=== PATIENT | male | born 1960 | race Caucasian/White ===

== ENCOUNTER 2019-05-27 11:57 | Day surgery (SDC) | payer OTHER ==
[~2019-05-27] VITALS: Ht 190.5 cm; Wt 126.7 kg
[~2019-05-27 11:57] MED LIST: FURO20 PO; TAMS.4ER PO
--- NOTE | 2019-05-27 13:16 | NUR ---
05/27/19 1316 Claudia Mckeon BLOOD DRAWN FOR HEP C RNA, GENOTYPE, AND FIBROSURE AND SENT TO LAB.
[2019-05-30 01:06] LABS: ALT (SGPT) P5P 165 IU/L (0-55); APOLIPOPROTEIN A-1 192 mg/dL (101-178); BILIRUBIN, TOTAL 0.8 mg/dL (0.0-1.2); GGT 123 IU/L (0-65); HAPTOGLOBIN 12 mg/dL (34-200); NECROINFLAMMAT ACTIVITY GRADE A3-Severe activity (.); NECROINFLAMMAT ACTIVITY SCORE 0.88 (0.00-0.17)
[2019-05-30 09:08] LABS: HCV LOG10 6.474 (.); HEPATITIS C QUANTITATION 2980000 IU/mL (.)
[2019-05-31 17:06] LABS: HEPATITIS C GENOTYPE 1a (.)
== END 2019-05-27 12:59 | disposition home or self-care (01) ==
LOC: ORSCSDS 11:57
PROVIDERS: Internal Medicine Gastroenterology
PROC: 0DJ08ZZ Inspection of Upper Intestinal Tract, Via Natural or Artificial Opening Endoscopic (ICD-10-PCS; principal; 2019-05-27 13:45)
DX: K74.60 Unspecified cirrhosis of liver (principal); Z87.11 Personal history of peptic ulcer disease; K76.6 Portal hypertension; K31.89 Other diseases of stomach and duodenum; E11.9 Type 2 diabetes mellitus without complications; B19.20 Unspecified viral hepatitis C without hepatic coma; E66.01 Morbid (severe) obesity due to excess calories; Z68.35 Body mass index [BMI] 35.0-35.9, adult; Z87.891 Personal history of nicotine dependence; Z79.899 Other long term (current) drug therapy
CPT/HCPCS: 81596; 82947; 87522; 87902; J2704; J7120